=== PATIENT | male | born 1995 | race Caucasian/White ===

== ENCOUNTER 2017-05-16 00:47 | Emergency (ER) | payer SELFPAY ==
[2017-05-16 01:02] VITALS: BP 120/72
[2017-05-16 01:18] LABS: Urine Bilirubin Negative (Negative); Urine Glucose Negative (Negative); Urine Nitrite Negative (Negative)
[2017-05-16 01:20] LABS: Hematocrit 42 % (42-52); Hemoglobin 14.2 g/dl (14.0-18.0); Mean Corpuscular HGB Conc 34 g/dl (31-36); Mean Corpuscular Hemoglobin 31 pg (27-31); Mean Corpuscular Volume 91 fL (80-94); Mean Platelet Volume 9 um3 (7.4-10.4); Red Cell Distribution Width 13 % (10.5-15); White Blood Count 7.6 10^3/ul (3.5-10.8)
[2017-05-16 01:28] LABS: Benzodiazepine Urine Screen Presumptive Positive (None Detect)
[2017-05-16 01:34] LABS: ALT 9 U/L (7-52); AST 15 U/L (13-39); Albumin 4.8 g/dL (3.2-5.2); Alkaline Phosphatase 49 U/L (34-104); Anion Gap 8 mmol/L (2-11); Blood Urea Nitrogen 10 mg/dL (6-24); CO2 Carbon Dioxide 26 mmol/L (22-32); Calcium 9.7 mg/dL (8.6-10.3); Chloride 105 mmol/L (101-111); EGFR African American 136.6 (>60); EGFR Non-African American 106.2 (>60); Globulin 2.9 g/dL (2-4); Glucose 84 mg/dL (70-100); Potassium 3.5 mmol/L (3.5-5.0); Sodium 139 mmol/L (133-145); Total Protein 7.7 g/dL (6.4-8.9)
[2017-05-16 01:59] LABS: Acetaminophen < 15 mcg/mL; Alcohol 85 mg/dL (<10); Salicylate < 2.50 mg/dL (<30)
[2017-05-16 02:10] LABS: TSH (Thyroid Stimulating Horm) 2.13 mcIU/mL (0.34-5.60)
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
--- NOTE | 2017-05-18 07:13 | PN ---
Branden Bojorquez Auryana, scribed for Chidi Pappas MD on 05/16/17 at 0916 . Progress Note - Progress Note Date of Service: 05/16/17 Note: Signout from Dr. Mahmood to Dr. Pappas at 07:00 pending MHE and disposition. Patient presented as a 9.41 with SI and attempt. After MHE, Dr. Gill felt that the patient was safe to be discharged home. Dx: benzodiazepine overdose, alcohol intoxication, and depression. Condition: Stable. The documentation as recorded by the Branden parisi Auryana accurately reflects the service I personally performed and the decisions made by Mian singh Drew, MD.
== END 2017-05-16 09:30 ==
LOC: ED 00:47
DX: F10.10 Alcohol abuse, uncomplicated (principal); F32.9 Major depressive disorder, single episode, unspecified
CPT/HCPCS: 36415; 80053; 80307; 80320; 80329; 81003; 84443; 85025; 99285; G0480

== ENCOUNTER 2018-02-03 18:42 | Emergency (ER) | payer OTHER ==
[2018-02-03] MEDS ORDERED: Acetaminophen TAB* 325 MG PO ONE (22:00)
--- NOTE | 2018-02-03 22:01 | ED ---
Influenza-Like Illness - HPI Summary HPI Summary: 22 presents ED with complaints of bilateral ear pain, fever, body aches, headache and fatigue for the past 2 days. States symptoms began over the weekend however got worse today. Take his temperature earlier and was 101.5. Denies any nausea, vomiting or abdominal pain. Admits to a slight cough. Admits to sore throat with swallowing. Denies any shortness of breath, chest pain or trouble breathing. Denies any neck stiffness. No past medical history. Has been taking ibuprofen and Tylenol with relief with last dose of Tylenol being an hour ago. No known sick contacts. - History of Current Complaint Chief Complaint: EDFever Time Seen by Provider: 02/03/18 21:59 Hx Obtained From: Patient Onset/Duration: Sudden Onset, Lasting Days, Still Present, Worse Since Severity: Moderate Associated Signs & Symptoms: Fever, Myalgia, Cough, Sore Throat, Nasal Congestion, Headache - Allergy/Home Medications Allergies/Adverse Reactions: Allergies Allergy/AdvReac Type Severity Reaction Status Date / Time No Known Allergies Allergy Verified 05/16/17 00:59 PMH/Surg Hx/FS Hx/Imm Hx Endocrine/Hematology History: Denies: Hx Anticoagulant Therapy, Hx Diabetes Cardiovascular History: Denies: Hx Hypertension Respiratory History: Denies: Hx Asthma Sensory History: Denies: Hx Legally Blind, Hx Deafness Opthamlomology History: Denies: Hx Legally Blind Psychiatric History: Denies: Hx Eating Disorder, Hx of Violent Episodes Against Others - Surgical History Surgery Procedure, Year, and Place: right knee meniscus x 2 - Immunization History Immunizations Up to Date: Yes Infectious Disease History: No Infectious Disease History: Denies: Hx Clostridium Difficile, Hx Hepatitis, Hx Human Immunodeficiency Virus (HIV), Hx of Known/Suspected MRSA, Hx Shingles, Hx Tuberculosis, Hx Known/ Suspected VRE, Hx Known/Suspected VRSA, History Other Infectious Disease, Traveled Outside the [place] in Last 30 Days - Family History Known Family History: Positive: Other - bipolar, heroin abuse, depression - Social History Alcohol Use: Occasionally Substance Use Type: Reports: None Smoking Status (MU): Never Smoked Tobacco Review of Systems Positive: Fever, Chills, Fatigue Positive: Sore Throat, Ear Ache Cardiovascular: Negative Positive: Cough Gastrointestinal: Negative Positive: Myalgia Skin: Negative Positive: Headache All Other Systems Reviewed And Are Negative: Yes Physical Exam Triage Information Reviewed: Yes Vital Signs On Initial Exam: Initial Vitals Temp Pulse Resp BP Pulse Ox 101.5 F 104 16 132/71 96 02/03/18 18:43 02/03/18 18:43 02/03/18 18:43 02/03/18 18:43 02/03/18 18:43 Temp and tachycardia noted improved once medicated with Tylenol Vital Signs Reviewed: Yes Appearance: Positive: Well-Appearing, No Pain Distress, Well-Nourished Skin: Positive: Warm, Skin Color Reflects Adequate Perfusion, Dry. Negative: Cold, Numb, Cyanosis @, Pale, Erythema @ Head/Face: Positive: Normal Head/Face Inspection Eyes: Positive: Normal, EOMI, RANDI, Conjunctiva Clear ENT: Positive: Pharyngeal erythema, Nasal congestion, TMs normal, Tonsillar swelling, Tonsillar exudate, Uvula midline. Negative: TM bulging, TM dull, TM red - EAC cerumen impaction in right, once cleared TM visualized and normal Dental: Positive: Cervical Lymphadenopathy Neck: Positive: Supple, Nontender, No Lymphadenopathy Respiratory/Lung Sounds: Positive: Clear to Auscultation, Breath Sounds Present. Negative: Rales, Rhonchi, Wheezes Cardiovascular: Positive: Normal, RRR, Pulses are Symmetrical in both Upper and Lower Extremities. Negative: Murmur, Rub Abdomen Description: Positive: Nontender, Soft Bowel Sounds: Positive: Present Musculoskeletal: Positive: Normal, Strength/ROM Intact. Negative: Abnormal @, Pain @, Edema Left, Edema Right Neurological: Positive: Normal, Sensory/Motor Intact, Alert, Oriented to Person Place, Time, NV Bundle Intact Distally, Normal Gait Diagnostics - Vital Signs Vital Signs Temp Pulse Resp BP Pulse Ox 02/03/18 20:48 101.5 F 88 20 123/71 94 02/03/18 18:43 101.5 F 104 16 132/71 96 - Laboratory Result Diagrams: 02/03/18 22:15 02/03/18 22:15 Lab Statement: Any lab studies that have been ordered have been reviewed, and results considered in the medical decision making process. - Radiology chest Radiology Interpretation Completed By: Radiologist Re-Evaluation - Re-Evaluation First Eval Re-Evaluation Time: 23:26 Change: Unchanged - Updated on labs and cultures. will obtain x-ray. waiting on year irrigation. Second Eval Change: Improved - feeling better, temp reduced, EAC was irrigated and TM appeared normal. aware of plan. all questions answered. Flu Symptom Course/Dx - Course Course Of Treatment: Labs, chest x-ray, mono, strep, flu obtained. All culture swabs were negative. [place] negative. Labs unremarkable. Patient was slightly dehydrated, was drinking fluids well in ED. Patient given Tylenol for fever. Right external auditory canal was irrigated and TM appeared normal. Chest x- ray was negative without acute changes read by Dr. Cain myself. Patient appears to be suffering from a viral illness. Normal vitals other than low- grade temp and slight tachycardia and normal physical exam otherwise. Vitals and tachycardia improved after treatment with Tylenol. Continue ibuprofen/ Tylenol at home for fever and body aches. Increase fluid intake and get plenty or rest. Patient is aware worsening signs and symptoms watch out for. Follow- up with PCP in 2 days for recheck. No other concerns at this time - Diagnoses Differential Diagnosis/HQI/PQRI: Positive: Bronchitis, Influenza, Upper Respiratory Infection Provider Diagnoses: Viral syndrome Discharge - Sign-Out/Discharge Documenting (check all that apply): Discharge - Discharge Plan Condition: Good Disposition: HOME Patient Education Materials: Viral Syndrome (ED) Referrals: [facility] - Adeel CARRANZA [Primary Care Provider] - Additional Instructions: Increase fluid intake and get plenty or rest. Continue ibuprofen/Tylenol alternating them every 3 hours. Decongestants and symptomatic measures sold [id number] as needed. Saltwater gargles and good oral hygiene. Follow-up with PCP for recheck in 2 days. Any new or worsening symptoms please seek medical attention promptly, as we discussed. - Billing Disposition and Condition Condition: GOOD Disposition: HOME
[2018-02-03 22:25] LABS: ABS Basophils 0 10^3/ul (0-0.2); ABS Eosinophils 0 10^3/ul (0-0.6); ABS Lymphocytes 1.2 10^3/ul (1.0-4.8); ABS Monocytes 1.1 10^3/ul (0-0.8); ABS Neutrophils 6.2 10^3/ul (1.5-7.7); ABS Nucleated RBC 0 10^3/ul; Eosinophil % 0.1 % (0-6); Hematocrit 40 % (42-52); Hemoglobin 14.2 g/dl (14.0-18.0); Lymphocyte % 13.9 % (25-47); Mean Corpuscular HGB Conc 36 g/dl (31-36); Mean Corpuscular Hemoglobin 31 pg (27-31); Mean Corpuscular Volume 87 fL (80-94); Mean Platelet Volume 8.1 um3 (7.4-10.4); Nucleated Red Blood Cells % 0; Platelet Count 151 10^3/ul (150-450); Red Blood Count 4.59 10^6/ul (4.0-5.4); Red Cell Distribution Width 12 % (10.5-15); White Blood Count 8.6 10^3/ul (3.5-10.8)
[2018-02-03 22:42] LABS: EGFR Non-African American 103.9 (>60)
[2018-02-03] MEDS ORDERED: NS 0.9% 1000 ML* 1,000 ML IV ONE (23:11)
[2018-02-04 01:16] VITALS: BP 112/61
--- NOTE | 2018-02-04 07:59 | RAD ---
Indication: Pneumonia. 2 views of the chest including dual energy PA views demonstrate no mediastinal shift. Heart is of normal size and configuration. Lung carver appear clear. No prior exam is available for comparison. IMPRESSION: No active cardiopulmonary disease is noted.
== END 2018-02-04 01:10 | disposition home or self-care (01) ==
LOC: ED 18:42
DX: B34.9 Viral infection, unspecified (principal)
CPT/HCPCS: 36415; 71046; 80053; 83605; 85025; 86308; 87502; 87651; 99283; A9270-GY